=== PATIENT | female | born 1965 | race Caucasian/White ===

== ENCOUNTER → 2016-05-20 | Outpatient (CLI) | payer MEDICARE, OTHER ==
[~2016-05-20] MED LIST: ADULT LOW DOSE81 MG PO; LEVAQUIN500 MG PO; NEURONTIN 100100 MG PO; NORCO 7.5-3251 EACH PO; PROTONIX40 MG PO
== END ==
LOC: KOH-I 15:46
DX: R10.9 Unspecified abdominal pain (principal); K31.89 Other diseases of stomach and duodenum; R93.3 Abnormal findings on diagnostic imaging of other parts of digestive tract
CPT/HCPCS: 74150